=== PATIENT | male | born 1935 | race Caucasian/White ===

== ENCOUNTER 2017-12-19 15:11 | Inpatient (IN) | payer OTHER ==
[~2017-12-19] VITALS: Ht 160 cm; Wt 68.6 kg
[~2017-12-19 15:11] MED LIST: AMLO5TAB7 PO; CLOP75TA52 PO; HYDR-3240 PO; LOVA10TA PO; [UNRECOGNIZED DRUG - REMARK] PO
[2017-12-19] MEDS ORDERED: ATOR40TA78 PO (15:31)
[2017-12-19 15:53] LABS: MEAN CORPUSCULAR HEMOGLOBIN 29.2 pg (27.5-34.5); MEAN CORPUSCULAR HGB CONC 32.9 g/dL (33.2-36.2); MEAN CORPUSCULAR VOLUME 88.7 fL (81-97); PLATELET COUNT 357 x10^3/uL (130-400); RED BLOOD COUNT 4.67 x10^6/uL (4.38-5.82); RED CELL DISTRIBUTION WIDTH 13.7 % (9.4-14.8)
[2017-12-19 15:57] LABS: ANION GAP 16 mmol/L (5-15); CALCIUM 9.6 mg/dL (8.5-10.1); CHLORIDE 101 mmol/L (98-107)
[2017-12-19 16:02] LABS: ALANINE AMINOTRANSFERASE 160 U/L (12-78); ALKALINE PHOSPHATASE 259 U/L (45-117); BILIRUBIN,TOTAL 1.1 mg/dL (0.2-1.0); CREATININE 1.46 mg/dL (0.7-1.3); TROPONIN I < 0.015 ng/mL (0.000-0.045)
[2017-12-19] MEDS ORDERED: CEFTRIAXONE PMX 1GM/50ML 50 ML ONE (16:15)
[2017-12-19] MEDS ORDERED: AZITHROMYCIN 500 MG in SODIUM CHLORIDE 0.9% 250 ML IVPB ONE (16:30)
[2017-12-19] MEDS ORDERED: CEFTRIAXONE 1,000 MG in SODIUM CHLORIDE 0.9% 50 ML IVPB ONE (16:30)
[2017-12-19] MEDS ORDERED: SODIUM CHLORIDE FLUSH 10ML SYR IVF ONE (16:30)
[2017-12-19 16:34] LABS: BASOPHILS # (AUTO) 0.06 x10^3/uL (0-0.1); BASOPHILS % (AUTO) 0 % (0-1); EOSINOPHILS % (AUTO) 0 % (1-7); LYMPHOCYTES # (AUTO) 6.71 x10^3/uL (1-3.4); LYMPHOCYTES % (AUTO) 25 % (22-44); MD SCAN; MONOCYTES # (AUTO) 0.73 x10^3/uL (0.2-0.8); MONOCYTES % (AUTO) 3 % (2-9); NEUTROPHILS # (AUTO) 19.43 x10^3/uL (1.8-6.8); NEUTROPHILS % (AUTO) 72 % (42-75)
[2017-12-19] MEDS ORDERED: SODIUM CHLORIDE 0.9% 1,000 ML IV SCH (16:40)
[2017-12-19] MEDS ORDERED: HYDROcodone/APAP 5/325 TABLET PO PRN (17:00)
[2017-12-19] MEDS ORDERED: LABETALOL 5MG/ML, 20ML IVPush PRN (17:00)
[2017-12-19] MEDS ORDERED: SODIUM CHLORIDE FLUSH 10ML SYR IVF PRN (17:00)
[2017-12-19] MEDS ORDERED: ACETAMINOPHEN 325 MG TABLET PO PRN (17:00)
[2017-12-19 17:21] LABS: INTERNATIONAL NORMALIZED RATIO 1.15 (0.93-1.1); PROTHROMBIN TIME 11.9 Seconds (9.6-11.5)
[2017-12-19 17:25] LABS: TROPONIN I < 0.015 ng/mL (0.000-0.045)
[2017-12-19 17:40] LABS: HEMOGLOBIN A1C 6.6 % (4.2-6.3)
[2017-12-19 18:20] VITALS: BP 123/74
[2017-12-19] MEDS: SODIUM CHLORIDE 0.9% 1,000 ML IV SCH ×2 (19:46→22:21)
[2017-12-19] MEDS: ERYTHROMYCIN OPHTH 0.5%, 1GM RIGHTEYE SCH (20:11)
[2017-12-19] MEDS: PIPERACILLIN/TAZO/PMX 4.5GM 100 ML IV SCH (21:34)
[2017-12-19] MEDS: LINEZOLID PMX 600MG/300ML 300 ML IV SCH (22:21)
[2017-12-19 23:27] LABS: TROPONIN I < 0.015 ng/mL (0.000-0.045)
[2017-12-20 01:53] VITALS: BP 120/63
[2017-12-20] MEDS: PIPERACILLIN/TAZO/PMX 4.5GM 100 ML IV SCH ×4 (03:12→21:32)
[2017-12-20 05:38] LABS: CHLORIDE 109 mmol/L (98-107)
[2017-12-20 05:44] LABS: ALANINE AMINOTRANSFERASE 98 U/L (12-78); ALBUMIN 1.4 g/dL (3.4-5.0); ALKALINE PHOSPHATASE 180 U/L (45-117); ANION GAP 9 mmol/L (5-15); BILIRUBIN,TOTAL 0.7 mg/dL (0.2-1.0); CALCIUM 7.9 mg/dL (8.5-10.1); CREATININE 0.79 mg/dL (0.7-1.3); TOTAL PROTEIN 5.6 g/dL (6.4-8.2)
[2017-12-20 05:51] LABS: BASOPHILS # (AUTO) 0.03 x10^3/uL (0-0.1); BASOPHILS % (AUTO) 0 % (0-1); EOSINOPHILS # (AUTO) 0.05 x10^3/uL (0-0.4); EOSINOPHILS % (AUTO) 0 % (1-7); LYMPHOCYTES # (AUTO) 3.66 x10^3/uL (1-3.4); LYMPHOCYTES % (AUTO) 24 % (22-44); MD NO; MEAN CORPUSCULAR HEMOGLOBIN 29.2 pg (27.5-34.5); MEAN CORPUSCULAR VOLUME 88.4 fL (81-97); MEAN PLATELET VOLUME 6.9 fL (7.4-10.4); MONOCYTES # (AUTO) 1.17 x10^3/uL (0.2-0.8); MONOCYTES % (AUTO) 8 % (2-9); NEUTROPHILS # (AUTO) 10.57 x10^3/uL (1.8-6.8); NEUTROPHILS % (AUTO) 68 % (42-75); PLATELET COUNT 282 x10^3/uL (130-400); RED BLOOD COUNT 3.52 x10^6/uL (4.38-5.82)
[2017-12-20 06:57] VITALS: BP 105/62
[2017-12-20] MEDS ORDERED: OMNIPAQUE 350 MG/ML, 100ML BOTTLE ONE (09:34)
[2017-12-20] MEDS: ERYTHROMYCIN OPHTH 0.5%, 1GM RIGHTEYE SCH ×2 (09:52→21:32)
[2017-12-20] MEDS: LINEZOLID PMX 600MG/300ML 300 ML IV SCH (11:11)
[2017-12-20] MEDS ORDERED: VANCOMYCIN PER PHARMACY MC PRN (11:30)
[2017-12-20] MEDS ORDERED: PHARMACOKINETIC CONSULTATION MC ONE (12:00)
[2017-12-20] MEDS ORDERED: PHARMACOKINETIC MONITORING MC PRN (12:00)
[2017-12-20] MEDS ORDERED: VANCOMYCIN PMX 1GM/200ML 200 ML IVPB SCH (12:00)
[2017-12-20] MEDS: SODIUM CHLORIDE 0.9% 1,000 ML IV SCH (12:12)
[2017-12-20 12:19] VITALS: BP 106/64
[2017-12-20] MEDS ORDERED: PHENYLEPHRINE 10 MG/ML ONE (15:15)
[2017-12-20] MEDS ORDERED: PROPOFOL 10 MG/ML, 20ML ONE (15:15)
[2017-12-20] MEDS ORDERED: SUCCINYLCHOLINE 20 MG/ML, 10ML ONE (15:15)
[2017-12-20] MEDS ORDERED: NEOSTIGMINE 1 MG/ML, 10ML ONE (15:15)
[2017-12-20] MEDS ORDERED: GLYCOPYRROLATE 0.2MG/1ML, 5ML ONE (15:15)
[2017-12-20] MEDS ORDERED: ROCURONIUM 10MG/ML,5ML ONE (15:15)
[2017-12-20] MEDS ORDERED: BUPIVACAINE/PF-EPI 0.5% 1:200K ONE (17:43)
[2017-12-20] MEDS ORDERED: FENTANYL PF 100 MCG/2ML ONE ×3 (17:56→20:05)
[2017-12-20] MEDS ORDERED: hydrALAzine 20 MG/ML, 1ML IV PRN (20:00)
[2017-12-20] MEDS ORDERED: MORPHINE SULFATE 4 MG/ML, 1ML IVPush PRN (20:00)
[2017-12-20] MEDS ORDERED: ONDANSETRON 2MG/ML, 2ML IV PRN (20:00)
[2017-12-20] MEDS ORDERED: ALBUTEROL/IPRATROPIUM 2.5MG/0.5MG, 3 ML NPPB PRN (20:00)
[2017-12-20] MEDS ORDERED: MEPERIDINE/PF 25MG/0.5ML IVPush PRN (20:00)
[2017-12-20] MEDS ORDERED: ACETAMINOPHEN 325 MG TABLET PO PRN (20:00)
[2017-12-20] MEDS ORDERED: LABETALOL 5MG/ML, 20ML IV PRN (20:00)
[2017-12-20] MEDS ORDERED: PROMETHAZINE 25 MG/ML, 1ML IV PRN (20:00)
[2017-12-20] MEDS ORDERED: ONDANSETRON ODT 8 MG PO PRN (20:00)
[2017-12-20] MEDS: FENTANYL PF 100 MCG/2ML IV PRN ×2 (20:09→20:40)
[2017-12-20 20:10] VITALS: BP 113/76
[2017-12-20] MEDS ORDERED: OXYcodone 5 MG/5 ML ORAL.SOL UDC ONE (20:42)
[2017-12-20] MEDS: OXYcodone 5 MG/5 ML ORAL.SOL UDC PO PRN (20:44)
[2017-12-20 21:21] VITALS: BP 117/72
[2017-12-20 23:31] VITALS: BP 106/65
[2017-12-20] MEDS: morphine SULFATE 10 MG/ML, 1ML IVPush PRN (23:59)
[2017-12-21] MEDS: PIPERACILLIN/TAZO/PMX 4.5GM 100 ML IV SCH ×4 (03:35→20:59)
[2017-12-21] MEDS: SODIUM CHLORIDE 0.9% 1,000 ML IV SCH ×2 (03:38→18:08)
[2017-12-21 03:48] VITALS: BP 100/59
[2017-12-21 05:11] LABS: BASOPHILS # (AUTO) 0.03 x10^3/uL (0-0.1); BASOPHILS % (AUTO) 0 % (0-1); EOSINOPHILS # (AUTO) 0.06 x10^3/uL (0-0.4); EOSINOPHILS % (AUTO) 0 % (1-7); LYMPHOCYTES # (AUTO) 3.65 x10^3/uL (1-3.4); LYMPHOCYTES % (AUTO) 24 % (22-44); MD NO; MEAN CORPUSCULAR HEMOGLOBIN 28.9 pg (27.5-34.5); MEAN CORPUSCULAR VOLUME 87.6 fL (81-97); MEAN PLATELET VOLUME 7.2 fL (7.4-10.4); MONOCYTES # (AUTO) 0.62 x10^3/uL (0.2-0.8); MONOCYTES % (AUTO) 4 % (2-9); NEUTROPHILS % (AUTO) 71 % (42-75); PLATELET COUNT 304 x10^3/uL (130-400); RED BLOOD COUNT 3.71 x10^6/uL (4.38-5.82); RED CELL DISTRIBUTION WIDTH 14.1 % (9.4-14.8)
[2017-12-21 05:21] LABS: ALBUMIN 1.4 g/dL (3.4-5.0); ANION GAP 10 mmol/L (5-15); CHLORIDE 108 mmol/L (98-107)
[2017-12-21 05:25] LABS: ALANINE AMINOTRANSFERASE 72 U/L (12-78); ALKALINE PHOSPHATASE 214 U/L (45-117); CREATININE 0.97 mg/dL (0.7-1.3); TOTAL PROTEIN 5.4 g/dL (6.4-8.2)
[2017-12-21 06:42] VITALS: BP 98/58
[2017-12-21] MEDS: ERYTHROMYCIN OPHTH 0.5%, 1GM RIGHTEYE SCH ×2 (09:04→20:59)
[2017-12-21 09:05] VITALS: BP 110/69
[2017-12-21] MEDS: morphine SULFATE 10 MG/ML, 1ML IVPush PRN (09:05)
[2017-12-21] MEDS: OXYcodone 5 MG/5 ML ORAL.SOL UDC PO PRN (12:15)
[2017-12-21 12:22] VITALS: BP 112/69
[2017-12-21] MEDS: NYSTATIN 500,000 UNITS/5 ML UDC PO SCH ×2 (16:44→20:59)
[2017-12-21 18:29] VITALS: BP 117/62
[2017-12-21] MEDS: OXYcodone IR 5MG TABLET PO PRN (20:59)
[2017-12-22 00:20] VITALS: BP 131/71
[2017-12-22] MEDS: PIPERACILLIN/TAZO/PMX 4.5GM 100 ML IV SCH ×3 (03:04→17:57)
[2017-12-22 04:58] LABS: BASOPHILS # (AUTO) 0.02 x10^3/uL (0-0.1); BASOPHILS % (AUTO) 0 % (0-1); EOSINOPHILS % (AUTO) 2 % (1-7); LYMPHOCYTES # (AUTO) 3.36 x10^3/uL (1-3.4); LYMPHOCYTES % (AUTO) 24 % (22-44); MD NO; MEAN CORPUSCULAR HEMOGLOBIN 28.8 pg (27.5-34.5); MEAN CORPUSCULAR HGB CONC 32.8 g/dL (33.2-36.2); MEAN CORPUSCULAR VOLUME 87.9 fL (81-97); MEAN PLATELET VOLUME 6.8 fL (7.4-10.4); MONOCYTES # (AUTO) 0.77 x10^3/uL (0.2-0.8); MONOCYTES % (AUTO) 6 % (2-9); NEUTROPHILS # (AUTO) 9.32 x10^3/uL (1.8-6.8); NEUTROPHILS % (AUTO) 68 % (42-75); PLATELET COUNT 305 x10^3/uL (130-400); RED BLOOD COUNT 3.34 x10^6/uL (4.38-5.82); RED CELL DISTRIBUTION WIDTH 14.3 % (9.4-14.8)
[2017-12-22 05:10] LABS: ALBUMIN 1.3 g/dL (3.4-5.0); ANION GAP 7 mmol/L (5-15); CALCIUM 7.9 mg/dL (8.5-10.1); CHLORIDE 107 mmol/L (98-107)
[2017-12-22 05:13] LABS: ALANINE AMINOTRANSFERASE 59 U/L (12-78); ALKALINE PHOSPHATASE 183 U/L (45-117); BILIRUBIN,TOTAL 0.7 mg/dL (0.2-1.0); CREATININE 0.83 mg/dL (0.7-1.3); TOTAL PROTEIN 5.2 g/dL (6.4-8.2)
[2017-12-22] MEDS: NYSTATIN 500,000 UNITS/5 ML UDC PO SCH ×4 (05:36→21:50)
[2017-12-22 08:00] VITALS: BP 137/62
[2017-12-22] MEDS: SODIUM CHLORIDE 0.9% 1,000 ML IV SCH ×2 (08:35→21:51)
[2017-12-22] MEDS: OXYcodone IR 5MG TABLET PO PRN ×2 (08:38→21:50)
[2017-12-22] MEDS: ERYTHROMYCIN OPHTH 0.5%, 1GM RIGHTEYE SCH ×2 (08:43→21:50)
[2017-12-22 17:39] VITALS: BP 144/71
[2017-12-22 18:38] VITALS: BP 138/67
[2017-12-23] MEDS: PIPERACILLIN/TAZO/PMX 4.5GM 100 ML IV SCH ×2 (01:29→09:13)
[2017-12-23 02:10] VITALS: BP 131/60
[2017-12-23] MEDS: NYSTATIN 500,000 UNITS/5 ML UDC PO SCH ×4 (05:37→22:01)
[2017-12-23 05:53] LABS: BASOPHILS # (AUTO) 0.08 x10^3/uL (0-0.1); BASOPHILS % (AUTO) 1 % (0-1); EOSINOPHILS # (AUTO) 0.25 x10^3/uL (0-0.4); EOSINOPHILS % (AUTO) 2 % (1-7); LYMPHOCYTES # (AUTO) 3.65 x10^3/uL (1-3.4); LYMPHOCYTES % (AUTO) 26 % (22-44); MD NO; MEAN CORPUSCULAR HEMOGLOBIN 29.1 pg (27.5-34.5); MEAN CORPUSCULAR HGB CONC 33.2 g/dL (33.2-36.2); MEAN CORPUSCULAR VOLUME 87.8 fL (81-97); MEAN PLATELET VOLUME 6.7 fL (7.4-10.4); MONOCYTES # (AUTO) 0.38 x10^3/uL (0.2-0.8); MONOCYTES % (AUTO) 3 % (2-9); NEUTROPHILS # (AUTO) 9.97 x10^3/uL (1.8-6.8); NEUTROPHILS % (AUTO) 70 % (42-75); PLATELET COUNT 320 x10^3/uL (130-400); RED BLOOD COUNT 3.25 x10^6/uL (4.38-5.82); RED CELL DISTRIBUTION WIDTH 14.1 % (9.4-14.8)
[2017-12-23 06:04] LABS: ALBUMIN 1.2 g/dL (3.4-5.0); ANION GAP 9 mmol/L (5-15); CALCIUM 7.9 mg/dL (8.5-10.1); CHLORIDE 108 mmol/L (98-107)
[2017-12-23 06:09] LABS: ALANINE AMINOTRANSFERASE 51 U/L (12-78); ALKALINE PHOSPHATASE 160 U/L (45-117); BILIRUBIN,TOTAL 0.7 mg/dL (0.2-1.0); CREATININE 0.71 mg/dL (0.7-1.3); TOTAL PROTEIN 5.1 g/dL (6.4-8.2)
[2017-12-23 08:00] VITALS: BP 149/75
[2017-12-23] MEDS: ERYTHROMYCIN OPHTH 0.5%, 1GM RIGHTEYE SCH ×2 (09:13→22:02)
[2017-12-23] MEDS: OXYcodone IR 5MG TABLET PO PRN ×3 (09:25→22:07)
[2017-12-23] MEDS ORDERED: OMNIPAQUE 350 MG/ML, 100ML BOTTLE ONE (11:11)
[2017-12-23 13:20] VITALS: BP 124/66
[2017-12-23] MEDS: CEFTRIAXONE 2 GM in SODIUM CHLORIDE 0.9% 50 ML IV SCH (16:10)
[2017-12-23] MEDS: SODIUM CHLORIDE 0.9% 1,000 ML IV SCH (17:15)
[2017-12-23 18:20] VITALS: BP 136/67
[2017-12-24 00:28] VITALS: BP 135/67
[2017-12-24] MEDS: SODIUM CHLORIDE 0.9% 1,000 ML IV SCH ×2 (06:06→21:18)
[2017-12-24] MEDS: NYSTATIN 500,000 UNITS/5 ML UDC PO SCH ×4 (06:14→21:18)
[2017-12-24 06:31] LABS: BASOPHILS # (AUTO) 0.12 x10^3/uL (0-0.1); BASOPHILS % (AUTO) 1 % (0-1); EOSINOPHILS # (AUTO) 0.25 x10^3/uL (0-0.4); EOSINOPHILS % (AUTO) 2 % (1-7); LYMPHOCYTES # (AUTO) 3.51 x10^3/uL (1-3.4); LYMPHOCYTES % (AUTO) 22 % (22-44); MD NO; MEAN CORPUSCULAR HEMOGLOBIN 29.1 pg (27.5-34.5); MEAN CORPUSCULAR HGB CONC 33.4 g/dL (33.2-36.2); MEAN CORPUSCULAR VOLUME 87.4 fL (81-97); MEAN PLATELET VOLUME 6.7 fL (7.4-10.4); MONOCYTES # (AUTO) 0.78 x10^3/uL (0.2-0.8); MONOCYTES % (AUTO) 5 % (2-9); NEUTROPHILS # (AUTO) 11.25 x10^3/uL (1.8-6.8); NEUTROPHILS % (AUTO) 71 % (42-75); PLATELET COUNT 355 x10^3/uL (130-400); RED BLOOD COUNT 3.25 x10^6/uL (4.38-5.82); RED CELL DISTRIBUTION WIDTH 14.2 % (9.4-14.8)
[2017-12-24 06:43] LABS: ALANINE AMINOTRANSFERASE 46 U/L (12-78); ALBUMIN 1.1 g/dL (3.4-5.0); ANION GAP 7 mmol/L (5-15); CALCIUM 7.9 mg/dL (8.5-10.1); CHLORIDE 110 mmol/L (98-107)
[2017-12-24 06:46] LABS: ALKALINE PHOSPHATASE 145 U/L (45-117); BILIRUBIN,TOTAL 0.3 mg/dL (0.2-1.0); TOTAL PROTEIN 5.2 g/dL (6.4-8.2)
[2017-12-24 07:52] VITALS: BP 153/74
[2017-12-24] MEDS: ERYTHROMYCIN OPHTH 0.5%, 1GM RIGHTEYE SCH ×2 (10:03→21:19)
[2017-12-24] MEDS ORDERED: FENTANYL PF 100 MCG/2ML ONE (10:51)
[2017-12-24] MEDS ORDERED: FLUMAZENIL 0.1 MG/1 ML, 5ML ONE (10:52)
[2017-12-24] MEDS ORDERED: LIDOCAINE-MPF 2%, 2ML ONE (10:52)
[2017-12-24] MEDS ORDERED: MIDAZOLAM 1 MG/ML, 5ML ONE (10:52)
[2017-12-24] MEDS ORDERED: NALOXONE 1 MG/ML, 2ML ONE (10:52)
[2017-12-24 14:00] VITALS: BP 160/77
[2017-12-24] MEDS: CEFTRIAXONE 2 GM in SODIUM CHLORIDE 0.9% 50 ML IV SCH (15:04)
[2017-12-24 19:05] VITALS: BP 163/74
[2017-12-24] MEDS: OXYcodone IR 5MG TABLET PO PRN (21:18)
[2017-12-25 01:09] VITALS: BP 160/75
[2017-12-25] MEDS: NYSTATIN 500,000 UNITS/5 ML UDC PO SCH ×4 (05:46→20:10)
[2017-12-25 05:55] LABS: MEAN CORPUSCULAR HEMOGLOBIN 28.8 pg (27.5-34.5); MEAN CORPUSCULAR HGB CONC 32.6 g/dL (33.2-36.2); MEAN CORPUSCULAR VOLUME 88.2 fL (81-97); MEAN PLATELET VOLUME 6.5 fL (7.4-10.4); PLATELET COUNT 406 x10^3/uL (130-400); RED BLOOD COUNT 3.63 x10^6/uL (4.38-5.82); RED CELL DISTRIBUTION WIDTH 14.1 % (9.4-14.8)
[2017-12-25 06:24] LABS: BASOPHILS # (AUTO) 0.16 x10^3/uL (0-0.1); BASOPHILS % (AUTO) 1 % (0-1); EOSINOPHILS # (AUTO) 0.04 x10^3/uL (0-0.4); EOSINOPHILS % (AUTO) 0 % (1-7); LYMPHOCYTES # (AUTO) 3.16 x10^3/uL (1-3.4); LYMPHOCYTES % (AUTO) 17 % (22-44); MD SCAN; MONOCYTES # (AUTO) 0.52 x10^3/uL (0.2-0.8); MONOCYTES % (AUTO) 3 % (2-9); NEUTROPHILS # (AUTO) 14.39 x10^3/uL (1.8-6.8); NEUTROPHILS % (AUTO) 79 % (42-75)
[2017-12-25 06:55] VITALS: BP 166/80
[2017-12-25] MEDS: AMLODIPINE 5 MG TABLET PO SCH (09:50)
[2017-12-25] MEDS: ERYTHROMYCIN OPHTH 0.5%, 1GM RIGHTEYE SCH ×2 (09:50→20:10)
[2017-12-25] MEDS: SODIUM CHLORIDE 0.9% 1,000 ML IV SCH ×2 (09:56→22:38)
[2017-12-25] MEDS ORDERED: MAGNESIUM HYDROXIDE 8%, 30ML UDC PO PRN (11:30)
[2017-12-25] MEDS: DOCUSATE 100 MG CAPSULE PO SCH ×2 (12:05→20:10)
[2017-12-25 12:13] VITALS: BP 180/86
[2017-12-25 14:44] VITALS: BP 101/63
[2017-12-25] MEDS: CEFTRIAXONE 2 GM in SODIUM CHLORIDE 0.9% 50 ML IV SCH (14:55)
[2017-12-25 18:58] VITALS: BP 118/70
[2017-12-26 01:52] VITALS: BP 107/65
[2017-12-26] MEDS: NYSTATIN 500,000 UNITS/5 ML UDC PO SCH ×4 (05:48→20:06)
[2017-12-26 06:14] LABS: BASOPHILS # (AUTO) 0.05 x10^3/uL (0-0.1); BASOPHILS % (AUTO) 0 % (0-1); EOSINOPHILS # (AUTO) 0.11 x10^3/uL (0-0.4); EOSINOPHILS % (AUTO) 1 % (1-7); LYMPHOCYTES # (AUTO) 3.11 x10^3/uL (1-3.4); LYMPHOCYTES % (AUTO) 19 % (22-44); MD NO; MEAN CORPUSCULAR HEMOGLOBIN 28.5 pg (27.5-34.5); MEAN CORPUSCULAR HGB CONC 32.7 g/dL (33.2-36.2); MEAN CORPUSCULAR VOLUME 87.1 fL (81-97); MEAN PLATELET VOLUME 6.6 fL (7.4-10.4); MONOCYTES # (AUTO) 0.74 x10^3/uL (0.2-0.8); MONOCYTES % (AUTO) 5 % (2-9); NEUTROPHILS # (AUTO) 12.59 x10^3/uL (1.8-6.8); NEUTROPHILS % (AUTO) 76 % (42-75); PLATELET COUNT 427 x10^3/uL (130-400); RED BLOOD COUNT 3.44 x10^6/uL (4.38-5.82); RED CELL DISTRIBUTION WIDTH 13.7 % (9.4-14.8)
[2017-12-26 06:15] LABS: HCT (SEDRATE) 29.6 % (39.2-51.8)
[2017-12-26 06:24] LABS: ALANINE AMINOTRANSFERASE 42 U/L (12-78); ALBUMIN 1.2 g/dL (3.4-5.0); ANION GAP 7 mmol/L (5-15); CALCIUM 7.9 mg/dL (8.5-10.1); CHLORIDE 108 mmol/L (98-107); CREATININE 0.51 mg/dL (0.7-1.3)
[2017-12-26 06:31] LABS: ALKALINE PHOSPHATASE 135 U/L (45-117); BILIRUBIN,TOTAL 0.5 mg/dL (0.2-1.0); TOTAL PROTEIN 5.3 g/dL (6.4-8.2)
[2017-12-26] MEDS: ERYTHROMYCIN OPHTH 0.5%, 1GM RIGHTEYE SCH ×2 (08:09→20:07)
[2017-12-26] MEDS: AMLODIPINE 5 MG TABLET PO SCH (08:10)
[2017-12-26] MEDS: DOCUSATE 100 MG CAPSULE PO SCH ×2 (08:10→20:06)
[2017-12-26 08:17] VITALS: BP 129/73
[2017-12-26 12:34] VITALS: BP 110/66
[2017-12-26] MEDS: SODIUM CHLORIDE 0.9% 1,000 ML IV SCH (12:47)
[2017-12-26] MEDS: CEFTRIAXONE 2 GM in SODIUM CHLORIDE 0.9% 50 ML IV SCH (14:01)
[2017-12-26 19:41] VITALS: BP 107/65
[2017-12-27 01:03] VITALS: BP 135/70
[2017-12-27] MEDS: SODIUM CHLORIDE 0.9% 1,000 ML IV SCH ×2 (02:06→14:12)
[2017-12-27] MEDS: NYSTATIN 500,000 UNITS/5 ML UDC PO SCH ×3 (06:04→17:11)
[2017-12-27 06:34] VITALS: BP 123/69
[2017-12-27] MEDS: DOCUSATE 100 MG CAPSULE PO SCH (08:45)
[2017-12-27] MEDS: AMLODIPINE 5 MG TABLET PO SCH (08:45)
[2017-12-27] MEDS: ERYTHROMYCIN OPHTH 0.5%, 1GM RIGHTEYE SCH (08:45)
[2017-12-27 12:10] VITALS: BP 119/68
[2017-12-27] MEDS ORDERED: CEFTRIAXONE PMX 2GM/50ML 50 ML IV SCH (14:00)
[2017-12-27] MEDS ORDERED: DOCU-131 PO (15:36)
[2017-12-27] MEDS ORDERED: ERYT1OIN5 RIGHTEYE (15:36)
[2017-12-27] MEDS ORDERED: NYST1000 PO (15:36)
[2017-12-27] MEDS ORDERED: AMLO5TAB7 PO (15:36)
== END 2017-12-27 18:20 | DRG 853 ==
LOC: ED 16:43 → EDIP 16:44 → ED 17:17 → 4WST 18:12
PROVIDERS: ADMIT Internal Medicine; ATTEND Hospitalist
PROC: 0W9J3ZZ Drainage of Pelvic Cavity, Percutaneous Approach (ICD-10-PCS; 2017-12-20)
PROC: 0BNK4ZZ Release Right Lung, Percutaneous Endoscopic Approach (ICD-10-PCS; principal; 2017-12-20 18:30)
PROC: 02HV33Z Insertion of Infusion Device into Superior Vena Cava, Percutaneous Approach (ICD-10-PCS; 2017-12-22)
PROC: B5181ZA Fluoroscopy of Superior Vena Cava using Low Osmolar Contrast, Guidance (ICD-10-PCS; 2017-12-22)
PROC: B548ZZA Ultrasonography of Superior Vena Cava, Guidance (ICD-10-PCS; 2017-12-22)
DX: A41.59 Other Gram-negative sepsis (principal); E43 Unspecified severe protein-calorie malnutrition; J86.9 Pyothorax without fistula; K65.1 Peritoneal abscess; J90 Pleural effusion, not elsewhere classified; E87.2 Acidosis; B37.0 Candidal stomatitis; I82.612 Acute embolism and thrombosis of superficial veins of left upper extremity; N17.9 Acute kidney failure, unspecified; H10.9 Unspecified conjunctivitis; E11.65 Type 2 diabetes mellitus with hyperglycemia; Z66 Do not resuscitate; K44.9 Diaphragmatic hernia without obstruction or gangrene; I10 Essential (primary) hypertension; E78.5 Hyperlipidemia, unspecified; H54.61 Unqualified visual loss, right eye, normal vision left eye; Z95.0 Presence of cardiac pacemaker; Z90.49 Acquired absence of other specified parts of digestive tract; Z85.038 Personal history of other malignant neoplasm of large intestine; Z79.899 Other long term (current) drug therapy
CPT/HCPCS: 36415; 36569; 49405; 71045; 71260; 74018; 74170; 74178; 75989; 76700; 76937; 77001; 80053; 83036; 83605; 83690; 84484; 85025; 85610; 85651; 85730; 86140; 86704; 86706; 86708; 86803; 87040; 87070; 87075; 87077; 87186; 87205; 87340; 88305; 93005; 96365; 96375; 99156; 99157; 99285; C1729; G0378; J0456; J0696; J2020; J2250; J2543; J2704; J2710; J3010; J3370; J3490; Q9967; C1751; C1769; J0330; J2270; J2310; J2370; J7030; J7050

== ENCOUNTER → 2018-01-27 | Outpatient (CLI) | payer OTHER ==
[~2018-01-27] MED LIST changes: +ATOR40TA78 PO; +DOCU-131 PO; +ERYT1OIN5 RIGHTEYE; +NYST1000 PO
== END | disposition home or self-care (01) ==
LOC: RAD 14:44
PROVIDERS: ATTEND Internal Medicine
DX: K44.9 Diaphragmatic hernia without obstruction or gangrene (principal); R91.8 Other nonspecific abnormal finding of lung field; K75.0 Abscess of liver; J90 Pleural effusion, not elsewhere classified; N28.1 Cyst of kidney, acquired; N20.0 Calculus of kidney
CPT/HCPCS: 71250; 74150

== ENCOUNTER → 2019-10-11 | Outpatient (CLI) | payer MEDICARE ==
[~2019-10-11] MED LIST changes: +AMLO-150 PO; -AMLO5TAB7 PO; +REGADENOSON 0.4 MG/5 ML SYRINGE ONE
== END | disposition home or self-care (01) ==
LOC: CFH 10:43
PROVIDERS: ATTEND Physician Assistant Medical
DX: I08.8 Other rheumatic multiple valve diseases (principal); I21.29 ST elevation (STEMI) myocardial infarction involving other sites; I25.10 Atherosclerotic heart disease of native coronary artery without angina pectoris
CPT/HCPCS: 78452; 93017; 93306; A9502; J2785

== ENCOUNTER → 2020-08-27 | Outpatient (CLI) | payer MEDICARE ==
[~2020-08-27] MED LIST changes: +HYDR-2214 PO; -HYDR-3240 PO; -REGADENOSON 0.4 MG/5 ML SYRINGE ONE
== END | disposition home or self-care (01) ==
LOC: CFH 13:26
PROVIDERS: ATTEND Physician Assistant Medical
DX: I08.8 Other rheumatic multiple valve diseases (principal); I11.9 Hypertensive heart disease without heart failure; I25.10 Atherosclerotic heart disease of native coronary artery without angina pectoris; Z95.0 Presence of cardiac pacemaker
CPT/HCPCS: 93306

== ENCOUNTER 2020-09-26 10:14 | Day surgery (SDC) | payer MEDICARE ==
[~2020-09-26] VITALS: Ht 160 cm; Wt 62.5 kg
[2020-09-26] MEDS ORDERED: CLOP75TA PO (10:53)
[2020-09-26 10:56] VITALS: BP 117/66
[2020-09-26] MEDS ORDERED: SODIUM CHLORIDE 0.9% 1,000 ML IV SCH (11:00)
[2020-09-26] MEDS ORDERED: MIDAZOLAM 1 MG/ML, 5ML ONE (11:13)
[2020-09-26] MEDS ORDERED: FENTANYL PF 100 MCG/2ML ONE (11:13)
[2020-09-26] MEDS ORDERED: LIDOCAINE 2%, 20ML ONE (11:14)
[2020-09-26] MEDS ORDERED: CEFAZOLIN 1,000 MG ONE (11:14)
[2020-09-26] MEDS ORDERED: CEFAZOLIN PMX 1GM/50ML 50 ML ONE (11:14)
[2020-09-26 11:31] LABS: BASOPHILS % (AUTO) 1 % (0-1); EOSINOPHILS % (AUTO) 3 % (1-7); LYMPHOCYTES % (AUTO) 32 % (22-44); MEAN CORPUSCULAR HEMOGLOBIN 31.1 pg (27.5-34.5); MEAN CORPUSCULAR HGB CONC 34.1 g/dL (33.2-36.2); MEAN PLATELET VOLUME 7.5 fL (7.4-10.4); MONOCYTES % (AUTO) 8 % (2-9); NEUTROPHILS % (AUTO) 56 % (42-75); PLATELET COUNT 174 x10^3/uL (130-400); RED BLOOD COUNT 4.41 x10^6/uL (4.38-5.82); RED CELL DISTRIBUTION WIDTH 13.5 % (9.4-14.8)
[2020-09-26 11:38] LABS: ANION GAP 5 mmol/L (5-15); CHLORIDE 110 mmol/L (98-107); CREATININE 1.11 mg/dL (0.7-1.3)
== END 2020-09-26 14:09 | disposition home or self-care (01) ==
LOC: CACL 10:14
PROVIDERS: ATTEND Internal Medicine Cardiovascular Disease
DX: Z45.010 Encounter for checking and testing of cardiac pacemaker pulse generator [battery] (principal); I44.1 Atrioventricular block, second degree; I25.10 Atherosclerotic heart disease of native coronary artery without angina pectoris; I35.1 Nonrheumatic aortic (valve) insufficiency; I10 Essential (primary) hypertension; E78.00 Pure hypercholesterolemia, unspecified; Z79.02 Long term (current) use of antithrombotics/antiplatelets; Z79.899 Other long term (current) drug therapy
CPT/HCPCS: 33228; 36415; 80048; 85025; 99156; C1785; J0690; J2250; J3010